=== PATIENT | female | born 1965 | race Caucasian/White ===

== ENCOUNTER → 2023-11-06 15:51 | Outpatient (CLI) | payer OTHER, SELFPAY ==
[2023-11-06 17:44] LABS: Alanine Aminotransferase 44 IU/L (<35); Albumin 4.7 g/dL (3.5-5.0); Albumin Globulin Ratio 1.5 (1.0-2.8); Alkaline Phosphatase 67 U/L (38-126); Aspartate Aminotransferase 59 IU/L (14-36); BUN Creatinine Ratio 15.9 (6-22); Bilirubin Total 0.7 mg/dL (0.2-1.3); Blood Urea Nitrogen 14 mg/dL (7-17); Calcium 9.6 mg/dL (8.4-10.2); Carbon Dioxide 27 mmol/L (22-32); Chloride 107 mmol/L (98-107); Estimated Glomerular Filt Rate > 60 mL/min (>60); Globulin 3.1 g/dL (1.7-4.1); Glucose 94 mg/dL (80-110); HEMOLYSIS < 15 (0-50); Potassium 4.9 mmol/L (3.4-5.1); Sodium 141 mmol/L (137-145); Total Protein 7.8 g/dL (6.3-8.2)
[2023-11-06 17:50] LABS: Hemoglobin A1C% w Est Avg Glu 6.4 % (4.0-6.0)
[2023-11-06 18:16] LABS: TSH w/ Reflex to FT4 4.65 uIU/mL (0.47-4.68)
== END ==
PROVIDERS: PCP Family Medicine; Referring Provider Family Medicine; Visit Provider Family Medicine
DX: E03.9 Hypothyroidism, unspecified (principal); R73.03 Prediabetes; I10 Essential (primary) hypertension
CPT/HCPCS: 36415; 80053; 83036; 84443

== ENCOUNTER → 2024-03-12 08:55 | Outpatient (CLI) | payer BC, SELFPAY ==
[2024-03-12 10:08] LABS: Hemoglobin A1C% w Est Avg Glu 6.7 % (4.0-6.0)
[2024-03-12 10:37] LABS: TSH w/ Reflex to FT4 7.86 uIU/mL (0.47-4.68)
[2024-03-12 11:22] LABS: Free T4, Direct Thyroxine 1.22 ng/dL (0.78-2.19)
== END ==
PROVIDERS: PCP Family Medicine; Referring Provider Family Medicine; Visit Provider Family Medicine
DX: E03.1 Congenital hypothyroidism without goiter (principal); R73.03 Prediabetes; G43.009 Migraine without aura, not intractable, without status migrainosus; H93.19 Tinnitus, unspecified ear
CPT/HCPCS: 36415; 83036; 84439; 84443

== ENCOUNTER → 2024-07-25 16:23 | Outpatient (CLI) | payer BC, SELFPAY ==
[2024-07-25 17:48] LABS: Hemoglobin A1C% w Est Avg Glu 5.9 % (4.0-6.0)
[2024-07-25 18:21] LABS: TSH w/ Reflex to FT4 7.85 uIU/mL (0.47-4.68)
[2024-07-25 18:56] LABS: Free T4, Direct Thyroxine 1.16 ng/dL (0.78-2.19)
== END ==
LOC: LAB 16:24
PROVIDERS: PCP Family Medicine; Referring Provider Family Medicine; Visit Provider Family Medicine
DX: E03.9 Hypothyroidism, unspecified (principal); E11.9 Type 2 diabetes mellitus without complications
CPT/HCPCS: 36415; 83036; 84439; 84443

== ENCOUNTER → 2024-12-10 15:35 | Outpatient (CLI) | payer BC, SELFPAY ==
[2024-12-10 17:36] LABS: TSH w/ Reflex to FT4 6.48 uIU/mL (0.47-4.68)
[2024-12-10 18:17] LABS: Free T4, Direct Thyroxine 1.48 ng/dL (0.78-2.19)
== END ==
PROVIDERS: PCP Family Medicine; Referring Provider Family Medicine; Visit Provider Family Medicine
DX: E03.9 Hypothyroidism, unspecified (principal); Z12.11 Encounter for screening for malignant neoplasm of colon
CPT/HCPCS: 36415; 82274; 84439; 84443

== ENCOUNTER → 2025-04-04 11:48 | Outpatient (CLI) | payer BC, SELFPAY ==
[2025-04-04 13:12] LABS: Hemoglobin A1C% w Est Avg Glu 6.9 % (4.0-6.0)
[2025-04-04 13:28] LABS: Cholesterol 86 mg/dL (140-199); HDL Cholesterol 39 mg/dL (40-60); Triglycerides 116 mg/dL (35-150)
[2025-04-04 13:43] LABS: Free T4, Direct Thyroxine 1.65 ng/dL (0.78-2.19)
[2025-04-04 13:57] LABS: Thyroid Stimulating Hormone 4.64 uIU/mL (0.47-4.68)
== END ==
PROVIDERS: PCP Family Medicine; Referring Provider Family Medicine; Visit Provider Family Medicine
DX: E11.9 Type 2 diabetes mellitus without complications (principal); E03.1 Congenital hypothyroidism without goiter; E66.812 Obesity, class 2; Z68.35 Body mass index [BMI] 35.0-35.9, adult
CPT/HCPCS: 36415; 80061; 83036; 84439; 84443